=== PATIENT | male | born 1960 | race African-American/Black ===

== ENCOUNTER 2021-04-24 11:42 | Emergency (ER) | payer MEDICAID ==
[~2021-04-24] VITALS: Ht 182.9 cm; Wt 96.0 kg
[2021-04-24 12:15] VITALS: BP 124/66
[2021-04-24] MEDS ORDERED: ACETAMINOPHEN 325MG TABLET PO ONE (12:45)
[2021-04-24] MEDS ORDERED: ACET-2708 MT (12:57)
[2021-04-24] MEDS ORDERED: CEPH500T MT (12:57)
== END 2021-04-24 13:15 | disposition home or self-care (01) ==
LOC: ER 11:49
DX: L02.31 Cutaneous abscess of buttock (principal); Z98.890 Other specified postprocedural states; Z79.899 Other long term (current) drug therapy
CPT/HCPCS: 99283